=== PATIENT | female | born 1970 | race Caucasian/White ===

== ENCOUNTER 2024-01-23 11:54 | Emergency (ER) | payer BC, SELFPAY ==
[2024-01-23 12:02] VITALS: BP 133/84; PULSE 90; RESP 16; TEMP 36.7; O2SAT 100
--- NOTE | 2024-01-23 13:00 | ED.EYEPROB ---
HPI - Eye Problem General Chief complaint: Eye Problems Stated complaint: poss pinkeye Time Seen by Provider: 01/23/24 12:52 Source: patient and RN notes reviewed Mode of arrival: ambulatory Limitations: no limitations History of Present Illness HPI Narrative: Patient presents today complaining of bilateral eyelid swelling and eye redness x3 days. States that started in the left and has now moved to the right with copious watering. No purulent discharge. Denies cold symptoms. She has been using some artificial tears and cooling eyedrops without relief. Patient states her boyfriend also has same symptoms. Related Data Home Medications Medication Instructions Recorded Confirmed atorvastatin 40 mg tablet 40 mg PO DAILY 01/23/24 01/23/24 levothyroxine 150 mcg tablet 150 mcg PO DAILY 01/23/24 01/23/24 Allergies Allergy/AdvReac Type Severity Reaction Status Date / Time No Known Allergies Allergy Verified 01/23/24 12:11 Review of Systems Review of Systems: CONSTITUTIONAL: Denies body aches, fever, chills, or sweats. EYES: Denies visual changes. + bilateral eye redness, tearing, eyelid swelling ENT: Denies rhinorrhea, congestion, sore throat, or otalgia. CARDIOVASCULAR: Denies chest pain, palpitations, or edema. RESPIRATORY: Denies cough or dyspnea. GASTROINTESTINAL: Denies abdominal pain, nausea, vomiting, or diarrhea. GENITOURINARY: Denies dysuria or hematuria. SKIN: Denies rash, itching, or wounds. MUSCULOSKELETAL: Denies back pain, joint pain, or myalgia. NEUROLOGIC: Denies headache, numbness, tingling, or weakness. PSYCH: Denies depression or anxiety. PMFSH Comments At time of signature, I have reviewed and agree with nursing past medical, surgical, social and family history unless otherwise noted. Please see nursing chart for further information. There is no relevant family history pertinent to the presenting complaint Exam Narrative: GENERAL: Well-appearing, well-nourished, and in no acute distress. HEAD: Normocephalic, atraumatic. EYES: EOMI. PERRL. Bilateral injected conjunctiva and chemosis, left greater than right, with moderate watering. Mild to moderate swelling of the upper and lower eyelids, left greater than right. No purulent discharge. ENT: Mucous membranes pink and moist. NECK: Normal AROM. CHEST: No respiratory distress. EXTREMITIES: Normal range of motion. No edema. SKIN: Warm, dry, no rash. Capillary refill normal. Normal skin turgor. NEURO: No focal deficits. Alert and oriented x3. Gait steady. PSYCH: Normal affect. No signs of depression or anxiety. Course Course Level of Care: Express Care Visit Vital Signs Vital signs: Vital Signs Temperature 98.1 F 01/23/24 12:02 Pulse Rate 90 01/23/24 12:02 Respiratory Rate 16 01/23/24 12:02 Blood Pressure 133/84 01/23/24 12:02 Pulse Oximetry 100 01/23/24 12:02 Temperature 98.1 F 01/23/24 12:02 Pulse Rate 90 01/23/24 12:02 Respiratory Rate 16 01/23/24 12:02 Blood Pressure 133/84 01/23/24 12:02 Pulse Oximetry 100 01/23/24 12:02 Reviewed MDM - Eye Problem MDM Narrative Medical decision making narrative: Patient's exam and history is consistent with allergic conjunctivitis. Recommend oral antihistamine, antihistamine eyedrops. Will also start patient on some Polytrim to cover for secondary bacterial infection. Differential Diagnosis Differential diagnosis: Likely corneal abrasion, conjunctivitis, periorbital cellulitis and corneal ulcer Critical Care Time Critical Care Time Critical Care Time: No Discharge Plan Discharge Clinical Impression: Conjunctivitis Qualifiers: Conjunctivitis type: acute Acute conjunctivitis type: unspecified Laterality: bilateral Qualified Code(s): H10.33 - Unspecified acute conjunctivitis, bilateral Patient Disposition: Home, Self-Care Condition: Stable Instructions: Conjunctivitis (ED) Additional Instructions: Please use the Polytrim
== END 2024-01-23 13:09 | disposition home or self-care (01) ==
PROVIDERS: Emergency Provider Nurse Practitioner; PCP Internal Medicine
DX: H10.33 Unspecified acute conjunctivitis, bilateral (principal); E78.00 Pure hypercholesterolemia, unspecified; E03.9 Hypothyroidism, unspecified
CPT/HCPCS: 99213; G0463